=== PATIENT | male | born 1970 | race African-American/Black ===

== ENCOUNTER 2023-07-10 14:46 | Inpatient (IN) | payer OTHER ==
[2023-07-10 16:09] LABS: BASO % 0.6 % (0-2.0); EOS % 0.9 % (0-4.5); HEMATOCRIT 32.5 % (35.4-49); HEMOGLOBIN 10.4 GM/dL (11.7-16.9); LYMPH % 9.4 % (8-40); MCH 30.9 pg (25.7-33.7); MCHC 31.9 g/dl (32.0-35.9); MEAN CELL VOLUME 96.7 fl (80-96); MEAN PLT VOLUME 9.3 fl (7.5-11.1); MONO % 2.9 % (3.8-10.2); NEUT % 86.2 % (42.8-82.8); PLATELET COUNT 340 10^3/uL (134-434); RBC 3.36 M/mm3 (4.00-5.60); RDW 18.7 % (11.9-15.9); WHITE BLOOD COUNT 5.9 K/mm3 (4.0-10.0)
[2023-07-10 16:15] LABS: VENOUS BASE EXCESS 3.5 mmol/L (-2-2); VENOUS O2 SATURATION 55.4 % (70-80); VENOUS PCO2 48.8 mmHg (38-52); VENOUS PH 7.397 (7.310-7.410)
[2023-07-10] MEDS: SODIUM CHLORIDE 0.9% 500 ML INFUS.BAG IV ONE (16:19)
[2023-07-10 16:21] LABS: INR 1.16 (0.83-1.09); PROTHROMBIN TIME (PATIENT) 13.4 SEC (9.7-13.0)
[2023-07-10 16:22] LABS: EPI CELLS >36 /uL (0-25.1); HYALINE CASTS 4 /uL (0-3.1); URINE APPEARANCE CLEAR; URINE BACTERIA 28 /uL (0-1359); URINE BILIRUBIN NEGATIVE (NEGATIVE); URINE COLOR DK YELLOW; URINE GLUCOSE (UA) NEGATIVE (NEGATIVE); URINE KETONE NEGATIVE (NEGATIVE); URINE LEUK ESTERASE 1+ (NEGATIVE); URINE NITRITE NEGATIVE (NEGATIVE); URINE PROTEIN TRACE (NEGATIVE); URINE UROBILINOGEN 0.2 mg/dL (0.2-1.0); URINE WBC 148 /uL (0-25.8)
[2023-07-10 16:24] LABS: ACTIVATED PTT 32.8 SECONDS (25.2-36.5)
[2023-07-10 16:30] LABS: POTASSIUM 3.2 mmol/L (3.5-5.1)
[2023-07-10 16:31] LABS: CALCIUM 8.1 mg/dL (8.5-10.1)
[2023-07-10 16:32] LABS: ALBUMIN 1.8 g/dl (3.4-5.0); BLOOD UREA NITROGEN 8.9 mg/dL (7-18)
[2023-07-10 16:37] LABS: BILIRUBIN,TOTAL 0.2 mg/dL (0.2-1)
[2023-07-10] MEDS: SODIUM CHLORIDE IV ONE (16:46)
[2023-07-10 16:54] LABS: LACTIC ACID 3.8 mmol/L (0.4-2.0)
[2023-07-10] MEDS: ACETAMINOPHEN 1000 MG/100 ML BAG IVPB ONE (17:06)
[2023-07-10] MEDS ORDERED: ACETAMINOPHEN INJECTION 100 ML IVPB ONE (17:07)
[2023-07-10 17:19] LABS: URINE RBC 90 /uL (0-23.9)
[2023-07-10] MEDS ORDERED: PIPERACILLIN/TAZOB 3.375 GM 3.375 GM/50 ML BAG IVPB ONE (17:29)
[2023-07-10] MEDS: PIPERACILLIN/TAZOB 3.375 GM 3.375 GM in DEXTROSE 5%-WATER - 50 ML IVPB ONE (17:34)
[2023-07-10] MEDS ORDERED: KCL 10 MEQ IVPB 10 MEQ/100 ML INFUS.BAG IVPB ONE (17:41)
[2023-07-10] MEDS: KCL 10 MEQ IVPB 10 MEQ/100 ML INFUS.BAG IVPB SCH (17:46)
[2023-07-10] MEDS ORDERED: VANCOMYCIN 1 GRAM (PRE-DOCKED) 1,000 MG/250 ML BAG IVPB ONE (18:05)
[2023-07-10] MEDS: VANCOMYCIN 1,000 MG in DEXTROSE 5%-WATER - 250 ML IVPB ONE (18:07)
[2023-07-10] MEDS ORDERED: ALBUTEROL SO4 2.5/IPRATROPIUM 0.5 INH SOL 3 ML VIAL.NEB. NEB PRN (21:15)
[2023-07-10] MEDS: LACTATED RINGERS SOLUTION 1,000 ML/1,000 ML INFUS.BAG IV SCH (21:50)
[2023-07-10] MEDS ORDERED: clonazePAM 0.25 MG ODT TABLETS SL ONE (21:53)
[2023-07-10] MEDS ORDERED: guaiFENesin/CODEINE 10 ML UNIT-DOSE CUPS ONE (21:58)
[2023-07-10] MEDS: clonazePAM 0.25 MG ODT TABLETS SL SCH (22:20)
[2023-07-10] MEDS ORDERED: VALPROATE SODIUM 500 MG/5 ML VIAL ONE (22:30)
[2023-07-10] MEDS ORDERED: VALPROATE SODIUM 500 MG/5 ML VIAL IVPB SCH (22:30)
[2023-07-10] MEDS: VALPROATE SODIUM INJECTION 500 MG in DEXTROSE 5%-WATER - 100 ML IVPB SCH (22:46)
[2023-07-10] MEDS: DOCUSATE NA 100 MG/10 ML UNIT-DOSE CUPS PO SCH (22:48)
[2023-07-10] MEDS: guaiFENesin 200 MG/10 ML 10 ML UNIT-DOSE CUPS PO SCH (22:48)
[2023-07-11] MEDS: LACTATED RINGERS SOLUTION 1,000 ML/1,000 ML INFUS.BAG IV SCH (00:46)
[2023-07-11] MEDS: VALPROATE SODIUM 250 MG/5 ML UNIT DOSE CUP PO SCH (00:46)
[2023-07-11] MEDS: PIPERACILLIN/TAZOB 4.5 GM 4.5 GM in DEXTROSE 5%-WATER 100 ML IVPB SCH ×2 (01:23→18:22)
[2023-07-11 06:53] LABS: BASO % 0.5 % (0-2.0); EOS % 0.8 % (0-4.5); HEMATOCRIT 25.1 % (35.4-49); HEMOGLOBIN 8.1 GM/dL (11.7-16.9); MCHC 32.2 g/dl (32.0-35.9); MEAN CELL VOLUME 96.3 fl (80-96); MEAN PLT VOLUME 9.4 fl (7.5-11.1); MONO % 3.9 % (3.8-10.2); NEUT % 88.8 % (42.8-82.8); PLATELET COUNT 289 10^3/uL (134-434); RBC 2.61 M/mm3 (4.00-5.60); RDW 17.7 % (11.9-15.9)
[2023-07-11 07:13] LABS: POTASSIUM 3.8 mmol/L (3.5-5.1)
[2023-07-11 07:18] LABS: CALCIUM 7.4 mg/dL (8.5-10.1)
[2023-07-11 07:19] LABS: BLOOD UREA NITROGEN 6.6 mg/dL (7-18); MAGNESIUM 1.6 mg/dL (1.8-2.4)
[2023-07-11 07:21] LABS: CREATININE 0.8 mg/dL (0.55-1.3); PHOSPHOROUS 2.6 mg/dL (2.5-4.9)
[2023-07-11 07:22] LABS: BILIRUBIN,TOTAL 0.4 mg/dL (0.2-1); TOT PROT 4.8 g/dl (6.4-8.2)
[2023-07-11 07:27] LABS: ALBUMIN 1.4 g/dl (3.4-5.0); LACTIC ACID 2.2 mmol/L (0.4-2.0)
[2023-07-11] MEDS ORDERED: FOLIC ACID 1 MG TABLET (FP) PO SCH (10:00)
[2023-07-11] MEDS ORDERED: ASCORBIC ACID 250 MG TABLET (FP) PO SCH (10:00)
[2023-07-11] MEDS: SENNOSIDES 8.8 MG/5 ML SYRUP PO SCH (10:31)
[2023-07-11] MEDS: ENOXAPARIN NA (PORCINE) 40 MG/0.4 ML DISP.SYRIN SQ SCH (10:31)
[2023-07-12] MEDS: MAGNESIUM 2GM/50ML STERILE WATER IVPB IVPB ONE (03:41)
[2023-07-12 08:38] LABS: HEMATOCRIT 26.7 % (35.4-49); HEMOGLOBIN 8.4 GM/dL (11.7-16.9); MCH 30.9 pg (25.7-33.7); MCHC 31.7 g/dl (32.0-35.9); MEAN CELL VOLUME 97.6 fl (80-96); MEAN PLT VOLUME 9.6 fl (7.5-11.1); PLATELET COUNT 279 10^3/uL (134-434); RBC 2.73 M/mm3 (4.00-5.60); WHITE BLOOD COUNT 7.2 K/mm3 (4.0-10.0)
[2023-07-12 09:01] LABS: POTASSIUM 3.7 mmol/L (3.5-5.1)
[2023-07-12 09:09] LABS: ALBUMIN 1.4 g/dl (3.4-5.0); CALCIUM 7.8 mg/dL (8.5-10.1); MAGNESIUM 2.4 mg/dL (1.8-2.4)
[2023-07-12 09:12] LABS: CREATININE 0.8 mg/dL (0.55-1.3); PHOSPHOROUS 3.3 mg/dL (2.5-4.9)
[2023-07-12 09:13] LABS: BILIRUBIN,TOTAL 0.3 mg/dL (0.2-1); TOT PROT 4.8 g/dl (6.4-8.2)
[2023-07-12] MEDS: COLLAGENASE CLOSTRIDIUM HIST. 30 GRAMS TUBE TP SCH (11:52)
[2023-07-12] MEDS: MULTIVIT-MINERALS ORAL LIQUID PO SCH (17:21)
[2023-07-12] MEDS: AMINO ACIDS/PROTEIN HYDROLYS 30 ML LIQUID.PKT PO SCH (17:21)
[2023-07-12] MEDS: PIPERACILLIN/TAZOB 4.5 GM 4.5 GM in DEXTROSE 5%-WATER 100 ML IVPB SCH (17:22)
[2023-07-13 07:32] LABS: HEMATOCRIT 26.9 % (35.4-49); HEMOGLOBIN 8.7 GM/dL (11.7-16.9); MCHC 32.4 g/dl (32.0-35.9); MEAN CELL VOLUME 95.6 fl (80-96); MEAN PLT VOLUME 9.7 fl (7.5-11.1); PLATELET COUNT 308 10^3/uL (134-434); RBC 2.81 M/mm3 (4.00-5.60); RDW 17.7 % (11.9-15.9); WHITE BLOOD COUNT 3.5 K/mm3 (4.0-10.0)
[2023-07-13 07:49] LABS: POTASSIUM 3.7 mmol/L (3.5-5.1)
[2023-07-13 08:34] LABS: MAGNESIUM 2.2 mg/dL (1.8-2.4)
[2023-07-13 08:41] LABS: TOT PROT 5.4 g/dl (6.4-8.2)
[2023-07-13 08:43] LABS: ALBUMIN 1.4 g/dl (3.4-5.0)
[2023-07-13 08:44] LABS: BILIRUBIN,TOTAL 0.3 mg/dL (0.2-1)
[2023-07-13 08:45] LABS: PHOSPHOROUS 3.2 mg/dL (2.5-4.9)
[2023-07-13] MEDS: SODIUM CHLORIDE 250 ML IV STA (08:45)
[2023-07-13 08:47] LABS: CREATININE 0.7 mg/dL (0.55-1.3)
[2023-07-13] MEDS: CEFTRIAXONE 2 GM in DEXTROSE 5%-WATER 100 ML IVPB SCH (17:50)
[2023-07-13] MEDS: PNEUMOC 20-VAL CONJ-DIP CRM/PF 0.5 ML SYRINGE IM ONE (17:57)
[2023-07-13] MEDS ORDERED: CEFTRIAXONE 2 GM-D5W BAG 2 GM/50 ML BAG IVPB SCH (18:00)
[2023-07-14 09:20] LABS: HEMATOCRIT 30.4 % (35.4-49); HEMOGLOBIN 9.7 GM/dL (11.7-16.9); MCH 30.5 pg (25.7-33.7); MEAN CELL VOLUME 95.2 fl (80-96); PLATELET COUNT 394 10^3/uL (134-434); RBC 3.19 M/mm3 (4.00-5.60); RDW 17.5 % (11.9-15.9); WHITE BLOOD COUNT 4.1 K/mm3 (4.0-10.0)
[2023-07-14 09:40] LABS: POTASSIUM 3.8 mmol/L (3.5-5.1)
[2023-07-14 09:43] LABS: CALCIUM 8.4 mg/dL (8.5-10.1)
[2023-07-14 09:44] LABS: ALBUMIN 1.7 g/dl (3.4-5.0); BLOOD UREA NITROGEN 7.4 mg/dL (7-18)
[2023-07-14 09:46] LABS: CREATININE 0.7 mg/dL (0.55-1.3)
[2023-07-14 09:47] LABS: PHOSPHOROUS 2.8 mg/dL (2.5-4.9)
[2023-07-14 09:48] LABS: BILIRUBIN,TOTAL 0.2 mg/dL (0.2-1); TOT PROT 6.1 g/dl (6.4-8.2)
[2023-07-14] MEDS: VALPROATE SODIUM 250 MG/5 ML UNIT DOSE CUP PO SCH (14:02)
[2023-07-14] MEDS: AMINO ACIDS/PROTEIN HYDROLYS 30 ML LIQUID.PKT NGT SCH (14:08)
[2023-07-14] MEDS: guaiFENesin 200 MG/10 ML 10 ML UNIT-DOSE CUPS NGT SCH (14:08)
[2023-07-14] MEDS: VALPROATE SODIUM 250 MG/5 ML UNIT DOSE CUP NGT SCH (14:08)
[2023-07-14] MEDS: clonazePAM 0.25 MG ODT TABLETS SL SCH (22:05)
[2023-07-14] MEDS: DOCUSATE NA 100 MG/10 ML UNIT-DOSE CUPS PO SCH (22:06)
[2023-07-15 09:13] LABS: HEMATOCRIT 29.1 % (35.4-49); HEMOGLOBIN 9.2 GM/dL (11.7-16.9); MCH 30.4 pg (25.7-33.7); MCHC 31.6 g/dl (32.0-35.9); MEAN CELL VOLUME 96.3 fl (80-96); MEAN PLT VOLUME 9.7 fl (7.5-11.1); PLATELET COUNT 356 10^3/uL (134-434); RBC 3.02 M/mm3 (4.00-5.60); RDW 18.1 % (11.9-15.9); WHITE BLOOD COUNT 4.7 K/mm3 (4.0-10.0)
[2023-07-15 09:16] LABS: POTASSIUM 3.9 mmol/L (3.5-5.1)
[2023-07-15 09:26] LABS: CALCIUM 7.8 mg/dL (8.5-10.1)
[2023-07-15 09:27] LABS: ALBUMIN 1.4 g/dl (3.4-5.0); BLOOD UREA NITROGEN 8.3 mg/dL (7-18)
[2023-07-15 09:30] LABS: CREATININE 0.6 mg/dL (0.55-1.3); PHOSPHOROUS 2.6 mg/dL (2.5-4.9)
[2023-07-15 09:31] LABS: BILIRUBIN,TOTAL 0.2 mg/dL (0.2-1); TOT PROT 5.1 g/dl (6.4-8.2)
[2023-07-15] MEDS: ENOXAPARIN NA (PORCINE) 40 MG/0.4 ML DISP.SYRIN SQ SCH (10:06)
[2023-07-15] MEDS: MULTIVIT-MINERALS ORAL LIQUID NGT SCH (10:08)
[2023-07-15] MEDS: SENNOSIDES 8.8 MG/5 ML SYRUP PO SCH (10:13)
[2023-07-15] MEDS ORDERED: DOCUSATE NA 100 MG/10 ML UNIT-DOSE CUPS PO SCH (10:39)
[2023-07-15] MEDS: COLLAGENASE CLOSTRIDIUM HIST. 30 GRAMS TUBE TP SCH (15:59)
[2023-07-15] MEDS: DOCUSATE NA 100 MG/10 ML UNIT-DOSE CUPS NGT SCH (21:44)
[2023-07-16 08:48] LABS: BASO % 0.4 % (0-2.0); EOS % 1.4 % (0-4.5); HEMATOCRIT 31.5 % (35.4-49); LYMPH % 14.3 % (8-40); MCH 30.5 pg (25.7-33.7); MCHC 31.8 g/dl (32.0-35.9); MEAN CELL VOLUME 95.8 fl (80-96); MEAN PLT VOLUME 9.6 fl (7.5-11.1); MONO % 11.8 % (3.8-10.2); NEUT % 72.1 % (42.8-82.8); PLATELET COUNT 390 10^3/uL (134-434); RBC 3.28 M/mm3 (4.00-5.60); RDW 18.3 % (11.9-15.9)
[2023-07-16 09:06] LABS: POTASSIUM 4.1 mmol/L (3.5-5.1)
[2023-07-16 09:07] LABS: CALCIUM 8.3 mg/dL (8.5-10.1)
[2023-07-16 09:08] LABS: ALBUMIN 1.5 g/dl (3.4-5.0); BLOOD UREA NITROGEN 6.9 mg/dL (7-18)
[2023-07-16 09:11] LABS: CREATININE 0.5 mg/dL (0.55-1.3)
[2023-07-16 09:13] LABS: BILIRUBIN,TOTAL 0.2 mg/dL (0.2-1); TOT PROT 5.7 g/dl (6.4-8.2)
[2023-07-16] MEDS: SENNOSIDES 8.8 MG/5 ML SYRUP NGT SCH (09:17)
[2023-07-16 12:49] LABS: INR 1.07 (0.83-1.09); PROTHROMBIN TIME (PATIENT) 12.4 SEC (9.7-13.0)
[2023-07-16 12:52] LABS: ACTIVATED PTT 29.5 SECONDS (25.2-36.5)
[2023-07-16 15:18] VITALS: BMI 19.5
[2023-07-17] MEDS: LACTATED RINGERS SOLUTION 1,000 ML/1,000 ML INFUS.BAG IV SCH (00:41)
[2023-07-17 08:26] LABS: BASO % 0.3 % (0-2.0); EOS % 0.4 % (0-4.5); HEMOGLOBIN 9.3 GM/dL (11.7-16.9); LYMPH % 4.5 % (8-40); MCH 30.6 pg (25.7-33.7); MEAN CELL VOLUME 95.5 fl (80-96); MEAN PLT VOLUME 9.4 fl (7.5-11.1); MONO % 7.3 % (3.8-10.2); NEUT % 87.5 % (42.8-82.8); PLATELET COUNT 410 10^3/uL (134-434); RBC 3.03 M/mm3 (4.00-5.60); RDW 18.6 % (11.9-15.9); WHITE BLOOD COUNT 15.8 K/mm3 (4.0-10.0)
[2023-07-17 09:32] LABS: BLOOD UREA NITROGEN 9.4 mg/dL (7-18); CALCIUM 8.2 mg/dL (8.5-10.1); POTASSIUM 4.4 mmol/L (3.5-5.1)
[2023-07-17 09:33] LABS: CREATININE 0.6 mg/dL (0.55-1.3)
[2023-07-17] MEDS ORDERED: FENTANYL CITRATE/PF 50 MCG/ML VIAL ONE (13:25)
[2023-07-17] MEDS ORDERED: GLUCAGON 1 MG KIT ONE (13:54)
[2023-07-17] MEDS: GLUCAGON 1 MG KIT IVPUSH ONE (14:20)
[2023-07-18] MEDS: DEXTROSE 5% IVPB ONE (11:45)
[2023-07-18] MEDS: WATER IVPB ONE (11:45)
[2023-07-18] MEDS: VALPROATE SODIUM IVPB ONE (11:45)
[2023-07-18] MEDS: VALPROATE SODIUM 500 MG/5 ML VIAL IVPB ONE (13:39)
[2023-07-18] MEDS: AMINO ACIDS 4.25%/D5W 1,000 ML IV SCH (17:17)
[2023-07-18] MEDS: VALPROATE SODIUM INJECTION 500 MG in SODIUM CHLORIDE 100 ML IVPB ONE (22:10)
[2023-07-19] MEDS: VALPROATE SODIUM 500 MG/5 ML VIAL IVPB ONE (00:31)
[2023-07-19 11:40] LABS: BASO % 0.4 % (0-2.0); EOS % 0.5 % (0-4.5); HEMATOCRIT 26.3 % (35.4-49); HEMOGLOBIN 8.5 GM/dL (11.7-16.9); LYMPH % 6.7 % (8-40); MCH 31.1 pg (25.7-33.7); MCHC 32.4 g/dl (32.0-35.9); MEAN CELL VOLUME 95.8 fl (80-96); MONO % 7.4 % (3.8-10.2); PLATELET COUNT 426 10^3/uL (134-434); RBC 2.74 M/mm3 (4.00-5.60); RDW 18.7 % (11.9-15.9); WHITE BLOOD COUNT 9.8 K/mm3 (4.0-10.0)
[2023-07-19 12:07] LABS: POTASSIUM 4.3 mmol/L (3.5-5.1)
[2023-07-19 12:09] LABS: CALCIUM 8.5 mg/dL (8.5-10.1)
[2023-07-19 12:10] LABS: ALBUMIN 1.3 g/dl (3.4-5.0); BLOOD UREA NITROGEN 10.6 mg/dL (7-18); MAGNESIUM 2.2 mg/dL (1.8-2.4)
[2023-07-19 12:13] LABS: CREATININE 0.5 mg/dL (0.55-1.3); PHOSPHOROUS 2.8 mg/dL (2.5-4.9)
[2023-07-19 12:14] LABS: BILIRUBIN,TOTAL 0.3 mg/dL (0.2-1); TOT PROT 5.4 g/dl (6.4-8.2)
[2023-07-19] MEDS: SODIUM CHLORIDE 500 ML IV STA (15:24)
[2023-07-19] MEDS: SODIUM CHLORIDE 1,000 ML IV SCH ×2 (16:28→19:19)
[2023-07-19] MEDS: WATER IVPB ONE (17:33)
[2023-07-19] MEDS: VALPROATE SODIUM IVPB ONE (17:33)
[2023-07-19] MEDS: DEXTROSE 5% IVPB ONE (17:33)
[2023-07-19] MEDS: VALPROATE SODIUM 250 MG/5 ML UNIT DOSE CUP PO ONE (17:33)
[2023-07-19] MEDS: VALPROATE SODIUM 250 MG/5 ML UNIT DOSE CUP PEG SCH (21:16)
[2023-07-20] MEDS: VALPROATE SODIUM 500 MG/5 ML VIAL IVPB ONE (07:38)
[2023-07-20 09:54] LABS: BASO % 0.2 % (0-2.0); EOS % 0.8 % (0-4.5); HEMATOCRIT 22.7 % (35.4-49); HEMOGLOBIN 7.4 GM/dL (11.7-16.9); LYMPH % 8.2 % (8-40); MCH 31.4 pg (25.7-33.7); MCHC 32.8 g/dl (32.0-35.9); MEAN CELL VOLUME 95.6 fl (80-96); MEAN PLT VOLUME 8.9 fl (7.5-11.1); MONO % 11.4 % (3.8-10.2); NEUT % 79.4 % (42.8-82.8); PLATELET COUNT 415 10^3/uL (134-434); RBC 2.37 M/mm3 (4.00-5.60); RDW 18.8 % (11.9-15.9); WHITE BLOOD COUNT 6.6 K/mm3 (4.0-10.0)
[2023-07-20 10:10] LABS: POTASSIUM 4.1 mmol/L (3.5-5.1)
[2023-07-20 10:17] LABS: ALBUMIN 1.1 g/dl (3.4-5.0); BLOOD UREA NITROGEN 9.3 mg/dL (7-18); CALCIUM 7.8 mg/dL (8.5-10.1); MAGNESIUM 2.2 mg/dL (1.8-2.4)
[2023-07-20 10:20] LABS: CREATININE 0.4 mg/dL (0.55-1.3); PHOSPHOROUS 2.9 mg/dL (2.5-4.9)
[2023-07-20 10:22] LABS: BILIRUBIN,TOTAL 0.2 mg/dL (0.2-1); TOT PROT 4.7 g/dl (6.4-8.2)
[2023-07-20] MEDS: SODIUM CHLORIDE 1,000 ML IV SCH (12:33)
[2023-07-20] MEDS: SODIUM CHLORIDE 500 ML IV STA (17:22)
[2023-07-20] MEDS: MIDODRINE HCL 2.5 MG TABLET PO SCH (17:22)
[2023-07-21] MEDS: ACETAMINOPHEN 1000 MG/100 ML BAG IVPB ONE (06:10)
[2023-07-21 08:29] LABS: BASO % 0.4 % (0-2.0); EOS % 1.1 % (0-4.5); HEMATOCRIT 22.4 % (35.4-49); HEMOGLOBIN 7.3 GM/dL (11.7-16.9); LYMPH % 11.8 % (8-40); MCHC 32.4 g/dl (32.0-35.9); MEAN CELL VOLUME 95.9 fl (80-96); MEAN PLT VOLUME 9.1 fl (7.5-11.1); MONO % 14.2 % (3.8-10.2); NEUT % 72.5 % (42.8-82.8); PLATELET COUNT 435 10^3/uL (134-434); RBC 2.34 M/mm3 (4.00-5.60); RDW 18.9 % (11.9-15.9); WHITE BLOOD COUNT 5.9 K/mm3 (4.0-10.0)
[2023-07-21 09:06] LABS: POTASSIUM 4.1 mmol/L (3.5-5.1)
[2023-07-21 09:10] LABS: ALBUMIN 1.1 g/dl (3.4-5.0); BLOOD UREA NITROGEN 10.1 mg/dL (7-18); CALCIUM 7.4 mg/dL (8.5-10.1); MAGNESIUM 2.2 mg/dL (1.8-2.4)
[2023-07-21 09:13] LABS: CREATININE 0.4 mg/dL (0.55-1.3); PHOSPHOROUS 2.9 mg/dL (2.5-4.9)
[2023-07-21 09:15] LABS: BILIRUBIN,TOTAL 0.1 mg/dL (0.2-1); TOT PROT 4.6 g/dl (6.4-8.2)
[2023-07-21] MEDS: CEFTRIAXONE 2 GM in DEXTROSE 5%-WATER 100 ML IVPB ONE (10:05)
[2023-07-21] MEDS: IRON SUCROSE INJECTION 100 MG in SODIUM CHLORIDE 95 ML IVPB ONE (12:01)
[2023-07-21] MEDS: MIDODRINE HCL 2.5 MG TABLET PO SCH (17:18)
[2023-07-22] MEDS: IRON SUCROSE INJECTION 200 MG in SODIUM CHLORIDE 100 ML IVPB ONE (09:11)
[2023-07-22 09:25] LABS: BASO % 0.6 % (0-2.0); EOS % 1.4 % (0-4.5); HEMATOCRIT 23.7 % (35.4-49); HEMOGLOBIN 7.5 GM/dL (11.7-16.9); LYMPH % 12.3 % (8-40); MCH 30.3 pg (25.7-33.7); MCHC 31.8 g/dl (32.0-35.9); MEAN CELL VOLUME 95.2 fl (80-96); MEAN PLT VOLUME 9.2 fl (7.5-11.1); MONO % 13.8 % (3.8-10.2); NEUT % 71.9 % (42.8-82.8); PLATELET COUNT 472 10^3/uL (134-434); RBC 2.49 M/mm3 (4.00-5.60); RDW 19.2 % (11.9-15.9); WHITE BLOOD COUNT 7.6 K/mm3 (4.0-10.0)
[2023-07-22 09:56] LABS: POTASSIUM 4.7 mmol/L (3.5-5.1)
[2023-07-22 10:06] LABS: CREATININE 0.3 mg/dL (0.55-1.3)
[2023-07-22 10:07] LABS: BILIRUBIN,TOTAL 0.1 mg/dL (0.2-1); TOT PROT 4.8 g/dl (6.4-8.2)
[2023-07-22 10:46] LABS: CALCIUM 7.3 mg/dL (8.5-10.1)
[2023-07-22 10:47] LABS: ALBUMIN 1.2 g/dl (3.4-5.0); BLOOD UREA NITROGEN 6.5 mg/dL (7-18)
[2023-07-22 10:50] LABS: PHOSPHOROUS 2.4 mg/dL (2.5-4.9)
[2023-07-23 05:29] VITALS: PULSE 108; RESP 20
[2023-07-23 08:24] LABS: BASO % 0.6 % (0-2.0); EOS % 1.1 % (0-4.5); HEMATOCRIT 24.5 % (35.4-49); LYMPH % 12.2 % (8-40); MCH 31.4 pg (25.7-33.7); MCHC 32.8 g/dl (32.0-35.9); MEAN CELL VOLUME 95.7 fl (80-96); MONO % 15.3 % (3.8-10.2); NEUT % 70.8 % (42.8-82.8); PLATELET COUNT 544 10^3/uL (134-434); RBC 2.56 M/mm3 (4.00-5.60); RDW 19.3 % (11.9-15.9); WHITE BLOOD COUNT 7.9 K/mm3 (4.0-10.0)
[2023-07-23 08:32] LABS: POTASSIUM 5.2 mmol/L (3.5-5.1)
[2023-07-23 08:48] LABS: ALBUMIN 1.3 g/dl (3.4-5.0)
[2023-07-23 08:49] LABS: CALCIUM 7.9 mg/dL (8.5-10.1)
[2023-07-23 08:50] LABS: BLOOD UREA NITROGEN 6.6 mg/dL (7-18); MAGNESIUM 2.3 mg/dL (1.8-2.4); PHOSPHOROUS 3.5 mg/dL (2.5-4.9)
[2023-07-23 08:51] LABS: CREATININE 0.4 mg/dL (0.55-1.3)
[2023-07-23 08:52] LABS: BILIRUBIN,TOTAL 0.2 mg/dL (0.2-1); TOT PROT 5.5 g/dl (6.4-8.2)
[2023-07-23] MEDS: MIDODRINE HCL 5 MG TABLET PO SCH (09:32)
[2023-07-23] MEDS: IRON SUCROSE INJECTION 200 MG in SODIUM CHLORIDE 100 ML IVPB ONE (09:33)
[2023-07-23 14:43] VITALS: BP 100/63; TEMP 98.7
[2023-07-23] MEDS ORDERED: MIDODRINE HCL 5 MG TABLET PO SCH (15:43)
[2023-07-23] MEDS: BACITRACIN ZINC 15 GM TUBE TOPICAL OINTMENT TP SCH (15:52)
== END 2023-07-23 15:51 | disposition home or self-care (01) | DRG 720 ==
LOC: JER 14:46 → JERBED 17:18 → J4W 23:10 → J7W 07-13 21:01 → J8W 07-14 11:39
PROVIDERS: ADMIT Internal Medicine; ATTEND Nurse Practitioner Family
PROC: 0DH63UZ Insertion of Feeding Device into Stomach, Percutaneous Approach (ICD-10-PCS; principal; 2023-07-17)
PROC: 3E0G76Z Introduction of Nutritional Substance into Upper GI, Via Natural or Artificial Opening (ICD-10-PCS; 2023-07-17)
DX: A41.9 Sepsis, unspecified organism (principal); G91.2 (Idiopathic) normal pressure hydrocephalus; E43 Unspecified severe protein-calorie malnutrition; J69.0 Pneumonitis due to inhalation of food and vomit; E55.9 Vitamin D deficiency, unspecified; E87.20 Acidosis, unspecified; E87.0 Hyperosmolality and hypernatremia; N39.0 Urinary tract infection, site not specified; L89.150 Pressure ulcer of sacral region, unstageable; Q90.9 Down syndrome, unspecified; R13.10 Dysphagia, unspecified; L89.222 Pressure ulcer of left hip, stage 2; R64 Cachexia; G40.909 Epilepsy, unspecified, not intractable, without status epilepticus; Z68.1 Body mass index [BMI] 19.9 or less, adult; E87.5 Hyperkalemia; F73 Profound intellectual disabilities; R65.20 Severe sepsis without septic shock; R62.7 Adult failure to thrive; K59.00 Constipation, unspecified; D64.9 Anemia, unspecified
CPT/HCPCS: 0241U-QW; 36415; 49440; 71045-TC-FY; 71250-TC; 74018-TC-FY; 80048; 80053; 81003; 82550; 82803; 82962; 83540; 83550; 83605; 83735; 84100; 84484; 85025; 85027; 85610; 85730; 86850; 86900; 86901; 87040; 87070; 87081; 87086; 87186; 87205; 87899; 90677; 93005; 93010; 97116-GP; 97162-GP; 99285-25; J0131; J1756

== ENCOUNTER 2023-07-24 13:46 | Inpatient (IN) | payer OTHER ==
[2023-07-24 15:52] LABS: BASO % 0.5 % (0-2.0); EOS % 0.9 % (0-4.5); HEMATOCRIT 31.7 % (35.4-49); HEMOGLOBIN 10.3 GM/dL (11.7-16.9); MCH 31.3 pg (25.7-33.7); MCHC 32.4 g/dl (32.0-35.9); MEAN CELL VOLUME 96.6 fl (80-96); MONO % 8.6 % (3.8-10.2); PLATELET COUNT 745 10^3/uL (134-434); RBC 3.28 M/mm3 (4.00-5.60); VENOUS BASE EXCESS 4.2 mmol/L (-2-2); VENOUS PCO2 64.8 mmHg (38-52); VENOUS PH 7.31 (7.310-7.410); WHITE BLOOD COUNT 7.1 K/mm3 (4.0-10.0)
[2023-07-24] MEDS: LACTATED RINGERS SOLUTION 1000 ML INFUS.BAG IV ONE ×2 (15:56→18:28)
[2023-07-24 16:08] LABS: INR 1.04 (0.83-1.09); PROTHROMBIN TIME (PATIENT) 12.1 SEC (9.7-13.0)
[2023-07-24 16:11] LABS: ACTIVATED PTT 32.6 SECONDS (25.2-36.5); POTASSIUM 5.3 mmol/L (3.5-5.1)
[2023-07-24 16:15] LABS: BLOOD UREA NITROGEN 10.3 mg/dL (7-18)
[2023-07-24 16:18] LABS: CREATININE 0.5 mg/dL (0.55-1.3)
[2023-07-24 16:29] LABS: BILIRUBIN,TOTAL 0.3 mg/dL (0.2-1); TOT PROT 6.9 g/dl (6.4-8.2)
[2023-07-24 16:33] LABS: ALBUMIN 1.7 g/dl (3.4-5.0)
[2023-07-24] MEDS ORDERED: VANCOMYCIN 1 GRAM (PRE-DOCKED) 1,000 MG/250 ML BAG IVPB ONE (17:24)
[2023-07-24] MEDS ORDERED: PIPERACILLIN/TAZOB 3.375 GM 3.375 GM/50 ML BAG IVPB ONE ×2 (17:25→17:47)
[2023-07-24 17:29] LABS: MAGNESIUM 2.5 mg/dL (1.8-2.4)
[2023-07-24] MEDS: PIPERACILLIN/TAZOB 3.375 GM 3.375 GM in DEXTROSE 5%-WATER - 50 ML IVPB ONE (17:35)
[2023-07-24 17:39] LABS: PH,URINE 7.5 (5.0-8.0); URINE APPEARANCE CLEAR; URINE BILIRUBIN NEGATIVE (NEGATIVE); URINE COLOR YELLOW; URINE GLUCOSE (UA) NEGATIVE (NEGATIVE); URINE KETONE NEGATIVE (NEGATIVE); URINE LEUK ESTERASE NEGATIVE (NEGATIVE); URINE NITRITE NEGATIVE (NEGATIVE); URINE PROTEIN NEGATIVE (NEGATIVE); URINE UROBILINOGEN 0.2 mg/dL (0.2-1.0)
[2023-07-24] MEDS: VANCOMYCIN 1,000 MG in DEXTROSE 5%-WATER - 250 ML IVPB ONE (17:41)
[2023-07-24] MEDS ORDERED: ACETAMINOPHEN INJECTION 100 ML IVPB ONE (18:32)
[2023-07-24] MEDS: SODIUM CHLORIDE 500 ML IV STA (18:38)
[2023-07-24] MEDS: ACETAMINOPHEN 1000 MG/100 ML BAG IVPB ONE (18:38)
[2023-07-24 19:07] LABS: LACTIC ACID 2.7 mmol/L (0.4-2.0)
[2023-07-24] MEDS: ALBUTEROL SO4 2.5/IPRATROPIUM 0.5 INH SOL 3 ML VIAL.NEB. NEB SCH (19:50)
[2023-07-24] MEDS: SODIUM CHLORIDE 1,000 ML IV SCH (20:57)
[2023-07-24 21:13] VITALS: BMI 18.8
[2023-07-24] MEDS: PIPERACILLIN/TAZOB 4.5 GM 4.5 GM in DEXTROSE 5%-WATER 100 ML IVPB SCH (23:08)
[2023-07-24] MEDS: clonazePAM 0.25 MG ODT TABLETS SL SCH (23:09)
[2023-07-24] MEDS: VALPROATE SODIUM 250 MG/5 ML UNIT DOSE CUP GT SCH (23:09)
[2023-07-25] MEDS: VANCOMYCIN/WATER FOR INJ (PEG) 750 MG/150 ML BAG IVPB SCH ×2 (07:12→13:35)
[2023-07-25 07:36] LABS: HEMATOCRIT 25.8 % (35.4-49); HEMOGLOBIN 8.2 GM/dL (11.7-16.9); MCH 31.2 pg (25.7-33.7); MCHC 31.7 g/dl (32.0-35.9); MEAN CELL VOLUME 98.4 fl (80-96); MEAN PLT VOLUME 8.9 fl (7.5-11.1); PLATELET COUNT 623 10^3/uL (134-434); RBC 2.62 M/mm3 (4.00-5.60); RDW 19.9 % (11.9-15.9); WHITE BLOOD COUNT 7.2 K/mm3 (4.0-10.0)
[2023-07-25 07:59] LABS: POTASSIUM 5.3 mmol/L (3.5-5.1)
[2023-07-25 08:02] LABS: BLOOD UREA NITROGEN 8.6 mg/dL (7-18); CALCIUM 8.5 mg/dL (8.5-10.1); MAGNESIUM 2.3 mg/dL (1.8-2.4)
[2023-07-25 08:05] LABS: PHOSPHOROUS 4.1 mg/dL (2.5-4.9)
[2023-07-25 08:06] LABS: CREATININE 0.5 mg/dL (0.55-1.3)
[2023-07-25 08:07] LABS: BILIRUBIN,TOTAL 0.4 mg/dL (0.2-1); TOT PROT 5.4 g/dl (6.4-8.2)
[2023-07-25 08:21] LABS: ALBUMIN 1.3 g/dl (3.4-5.0)
[2023-07-25] MEDS: COLLAGENASE CLOSTRIDIUM HIST. 30 GRAMS TUBE TP SCH (11:29)
[2023-07-25] MEDS: MIDODRINE HCL 2.5 MG TABLET GT SCH (11:29)
[2023-07-25] MEDS: LACTATED RINGERS SOLUTION 1000 ML INFUS.BAG IV ONE (12:00)
[2023-07-25] MEDS: POLYETHYLENE GLYCOL (HEALTHYLAX) 3350 17 GM PACKET GT SCH (13:34)
[2023-07-25] MEDS: MULTIVIT-MINERALS ORAL LIQUID GT SCH (13:34)
[2023-07-25] MEDS: PIPERACILLIN/TAZOB 4.5 GM 4.5 GM in DEXTROSE 5%-WATER 100 ML IVPB SCH (13:35)
[2023-07-25] MEDS: PIPERACILLIN/TAZOB 3.375 GM 3.375 GM in DEXTROSE 5%-WATER - 50 ML IVPB SCH (17:12)
[2023-07-25] MEDS: MIDODRINE HCL 5 MG TABLET GT SCH (17:13)
[2023-07-25] MEDS: LACTATED RINGERS SOLUTION 1,000 ML/1,000 ML INFUS.BAG IV SCH (17:13)
[2023-07-25] MEDS: AMINO ACIDS/PROTEIN HYDROLYS 30 ML LIQUID.PKT GT SCH (17:13)
[2023-07-25 18:29] LABS: BASO % 1.1 % (0-2.0); EOS % 0.9 % (0-4.5); HEMATOCRIT 25.3 % (35.4-49); HEMOGLOBIN 7.9 GM/dL (11.7-16.9); LYMPH % 10.3 % (8-40); MCH 30.6 pg (25.7-33.7); MCHC 31.1 g/dl (32.0-35.9); MEAN CELL VOLUME 98.5 fl (80-96); MEAN PLT VOLUME 8.9 fl (7.5-11.1); NEUT % 73.7 % (42.8-82.8); PLATELET COUNT 595 10^3/uL (134-434); RBC 2.57 M/mm3 (4.00-5.60); RDW 20.2 % (11.9-15.9); WHITE BLOOD COUNT 7.6 K/mm3 (4.0-10.0)
[2023-07-25] MEDS: DOCUSATE NA 100 MG/10 ML UNIT-DOSE CUPS GT SCH (21:26)
[2023-07-25] MEDS: LACTATED RINGERS SOLUTION 1,000 ML/1,000 ML INFUS.BAG IV STA (23:21)
[2023-07-26] MEDS: LACTATED RINGERS SOLUTION 1,000 ML/1,000 ML INFUS.BAG IV STA (02:04)
[2023-07-26 09:22] LABS: BASO % 0.9 % (0-2.0); EOS % 0.9 % (0-4.5); HEMATOCRIT 21.7 % (35.4-49); LYMPH % 14.9 % (8-40); MCHC 32.1 g/dl (32.0-35.9); MEAN CELL VOLUME 96.6 fl (80-96); MEAN PLT VOLUME 8.5 fl (7.5-11.1); MONO % 17.3 % (3.8-10.2); PLATELET COUNT 625 10^3/uL (134-434); RBC 2.25 M/mm3 (4.00-5.60); RDW 20.1 % (11.9-15.9); WHITE BLOOD COUNT 6.5 K/mm3 (4.0-10.0)
[2023-07-26] MEDS: LACTULOSE 20 GM/30 ML UDC (FOR ORAL USE ONLY) GT SCH (09:31)
[2023-07-26] MEDS: SENNOSIDES 8.8 MG/5 ML SYRUP GT SCH (09:31)
[2023-07-26] MEDS: FOLIC ACID 1 MG TABLET (FP) GT SCH (09:33)
[2023-07-26] MEDS: ASCORBIC ACID 250 MG TABLET (FP) GT SCH (09:33)
[2023-07-26 09:46] LABS: POTASSIUM 4.7 mmol/L (3.5-5.1)
[2023-07-26 09:51] LABS: CALCIUM 8.3 mg/dL (8.5-10.1)
[2023-07-26 09:52] LABS: ALBUMIN 1.2 g/dl (3.4-5.0); MAGNESIUM 2.2 mg/dL (1.8-2.4)
[2023-07-26 09:53] LABS: CREATININE 0.5 mg/dL (0.55-1.3)
[2023-07-26 09:54] LABS: TOT PROT 5.3 g/dl (6.4-8.2)
[2023-07-26 09:56] LABS: BLOOD UREA NITROGEN 10.3 mg/dL (7-18)
[2023-07-26 10:01] LABS: BILIRUBIN,TOTAL 0.2 mg/dL (0.2-1)
[2023-07-26 10:27] LABS: RETICULOCYTES 3.29 % (0.5-1.5)
[2023-07-26] MEDS: SODIUM ZIRCONIUM CYCLOSILICATE (LOKELMA) 5 GM PACKET PO ONE (13:10)
[2023-07-26] MEDS: SODIUM CHLORIDE 500 ML IV STA (15:08)
[2023-07-27 08:27] LABS: HEMATOCRIT 31.2 % (35.4-49); HEMOGLOBIN 10.3 GM/dL (11.7-16.9); MCH 31.1 pg (25.7-33.7); MEAN CELL VOLUME 94.1 fl (80-96); MEAN PLT VOLUME 8.4 fl (7.5-11.1); PLATELET COUNT 660 10^3/uL (134-434); RBC 3.31 M/mm3 (4.00-5.60); RDW 18.9 % (11.9-15.9); WHITE BLOOD COUNT 8.4 K/mm3 (4.0-10.0)
[2023-07-27 08:44] LABS: POTASSIUM 5.4 mmol/L (3.5-5.1)
[2023-07-27 08:47] LABS: CALCIUM 9.5 mg/dL (8.5-10.1)
[2023-07-27 08:48] LABS: BLOOD UREA NITROGEN 12.2 mg/dL (7-18)
[2023-07-27 08:51] LABS: CREATININE 0.6 mg/dL (0.55-1.3)
[2023-07-27] MEDS: LACTOBACILLUS ACIDOPHILUS 1 TABLET GT SCH (10:43)
[2023-07-27] MEDS: SODIUM ZIRCONIUM CYCLOSILICATE (LOKELMA) 5 GM PACKET PO ONE (12:00)
[2023-07-27] MEDS: BANATROL PLUS POWDER PACKET GT SCH (13:10)
[2023-07-27] MEDS: MIDODRINE HCL 5 MG TABLET GT SCH (17:42)
[2023-07-27] MEDS: CEFUROXIME AXETIL 500 MG TABLET GT SCH (22:22)
[2023-07-28 14:34] VITALS: RESP 20
[2023-07-29 11:45] LABS: BASO % 0.9 % (0-2.0); EOS % 0.8 % (0-4.5); HEMATOCRIT 29.4 % (35.4-49); HEMOGLOBIN 9.8 GM/dL (11.7-16.9); LYMPH % 11.1 % (8-40); MCH 31.8 pg (25.7-33.7); MCHC 33.5 g/dl (32.0-35.9); MEAN CELL VOLUME 95.1 fl (80-96); MEAN PLT VOLUME 8.2 fl (7.5-11.1); MONO % 15.9 % (3.8-10.2); NEUT % 71.3 % (42.8-82.8); PLATELET COUNT 679 10^3/uL (134-434); RBC 3.09 M/mm3 (4.00-5.60); RDW 19.4 % (11.9-15.9); WHITE BLOOD COUNT 9.4 K/mm3 (4.0-10.0)
[2023-07-29 12:00] LABS: POTASSIUM 4.8 mmol/L (3.5-5.1)
[2023-07-29 12:01] LABS: ALBUMIN 1.3 g/dl (3.4-5.0); BLOOD UREA NITROGEN 14.7 mg/dL (7-18); CALCIUM 8.8 mg/dL (8.5-10.1)
[2023-07-29 12:04] LABS: CREATININE 0.5 mg/dL (0.55-1.3)
[2023-07-29 12:07] LABS: BILIRUBIN,TOTAL 0.2 mg/dL (0.2-1); TOT PROT 5.7 g/dl (6.4-8.2)
[2023-07-30 08:53] LABS: ACTIVATED PTT 31.7 SECONDS (25.2-36.5)
[2023-07-30 08:56] LABS: BASO % 0.9 % (0-2.0); EOS % 1.1 % (0-4.5); HEMATOCRIT 29.3 % (35.4-49); HEMOGLOBIN 9.8 GM/dL (11.7-16.9); LYMPH % 9.5 % (8-40); MCH 32.1 pg (25.7-33.7); MCHC 33.4 g/dl (32.0-35.9); MEAN CELL VOLUME 95.9 fl (80-96); NEUT % 73.5 % (42.8-82.8); PLATELET COUNT 699 10^3/uL (134-434); RBC 3.06 M/mm3 (4.00-5.60); RDW 19.9 % (11.9-15.9); WHITE BLOOD COUNT 8.3 K/mm3 (4.0-10.0)
[2023-07-30 08:57] LABS: INR 1.08 (0.83-1.09); PROTHROMBIN TIME (PATIENT) 12.5 SEC (9.7-13.0)
[2023-07-30 09:09] LABS: ALBUMIN 1.4 g/dl (3.4-5.0); BLOOD UREA NITROGEN 15.9 mg/dL (7-18); CALCIUM 8.7 mg/dL (8.5-10.1)
[2023-07-30 09:10] LABS: MAGNESIUM 2.4 mg/dL (1.8-2.4)
[2023-07-30 09:12] LABS: CREATININE 0.5 mg/dL (0.55-1.3); PHOSPHOROUS 3.3 mg/dL (2.5-4.9)
[2023-07-30 09:13] LABS: BILIRUBIN,TOTAL 0.3 mg/dL (0.2-1)
[2023-07-30 14:46] VITALS: BP 93/53; PULSE 102; TEMP 97.9
== END 2023-07-30 15:55 | DRG 137 ==
LOC: JER 13:46 → JERBED 17:14 → J5S 19:08
PROVIDERS: ADMIT Internal Medicine
PROC: 30233N1 Transfusion of Nonautologous Red Blood Cells into Peripheral Vein, Percutaneous Approach (ICD-10-PCS; principal; 2023-07-26)
DX: J69.0 Pneumonitis due to inhalation of food and vomit (principal); E46 Unspecified protein-calorie malnutrition; J96.12 Chronic respiratory failure with hypercapnia; L89.154 Pressure ulcer of sacral region, stage 4; R53.2 Functional quadriplegia; F73 Profound intellectual disabilities; Q90.9 Down syndrome, unspecified; G40.909 Epilepsy, unspecified, not intractable, without status epilepticus; Z68.1 Body mass index [BMI] 19.9 or less, adult; E87.20 Acidosis, unspecified; D64.9 Anemia, unspecified
CPT/HCPCS: 0241U-QW; 36415; 36430; 71045-TC-FY; 74176-TC; 80048; 80053; 81003; 82272; 82550; 82607; 82728; 82746; 82803; 83540; 83550; 83605; 83615; 83735; 84100; 84466; 84484; 85025; 85027; 85045; 85610; 85651; 85730; 86140; 86850; 86900; 86901; 86922; 87040; 87086; 87635; 93005; 93010; 94640; 99285-25; J0131; P9058

== ENCOUNTER 2023-11-10 16:16 | Emergency (ER) | payer OTHER ==
[2023-11-10 16:24] VITALS: BP 101/60; PULSE 78; RESP 16; TEMP 97.8; BMI 27.4
[2023-11-10] MEDS ORDERED: BACLOFEN 10 MG TABLET (FP) ONE (18:00)
[2023-11-10] MEDS: BACLOFEN 10 MG TABLET (FP) PO ONE (18:11)
[2023-11-10] MEDS: NALOXONE HCL 0.4 MG/ML VIAL IVPUSH ONE (18:34)
== END 2023-11-10 20:24 ==
LOC: JER 16:16
DX: R06.6 Hiccough (principal)
CPT/HCPCS: 71045-TC-FY; 93005; 93010; 99284-25; J0475